=== PATIENT | female | born 1955 | race Caucasian/White ===

== ENCOUNTER → 2024-11-04 | Outpatient (CLI) | payer MEDICARE ==
--- NOTE | 2024-11-04 13:56 | CT ---
EXAMINATION TYPE: CT hip LT wo con DATE OF EXAM: 11/04/2024 COMPARISON: None CLINICAL INDICATION: Female, 69 years old with history of M25.552 PAIN IN LEFT HIP; PHH, Chronic left hip pain, replacement done Apr 2023 CT DLP: 596 mGycm Automated exposure control for dose reduction was used. FINDINGS: There is a left hip prosthesis appears to be in satisfactory position and orientation. There is no ac marshall fracture or dislocation. There is no periprosthetic ostial lysis. There are fixation screws across both SI joints. The periarticular soft tissues are unremarkable. IMPRESSION: 1. Satisfactory appearance of left hip prosthesis. 2. No acute fracture or dislocation. 3. No significant soft tissue abnormalities. IMPRESSION: [facility], , 11/04/2024 1:53 PM
== END | disposition home or self-care (01) ==
LOC: RADCTMAIN 10:45
PROVIDERS: ATTEND Orthopaedic Surgery
DX: M25.552 Pain in left hip (principal); Z96.642 Presence of left artificial hip joint